=== PATIENT | male | born 2000 | race African-American/Black ===

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

== ENCOUNTER 2020-03-03 04:51 | Emergency (ER) | payer SELFPAY ==
[~2020-03-03] VITALS: Ht 170.2 cm; Wt 63.6 kg
[~2020-03-03 04:51] MED LIST changes: +ALBU2.5V8 INH; +OMEP20CA16 PO; -PROAIR HFA8.5 GM INH
--- NOTE | 2020-03-03 05:18 | PHYS DOC ---
Past Medical History Past Medical History: Anxiety, Asthma, Depression (ZBIGNIEW ZAMAN Jr. DO) Past Surgical History: No Surgical History (ZBIGNIEW ZAMAN Jr., DO) Smoking Status: Current Some Day Smoker Alcohol Use: None Drug Use: Marijuana (ZBIGNIEW ZAMAN Jr. DO) General Adult EDM: Chief Complaint: ANXIETY/PANIC ATTACK HPI: HPI: Patient is a 20 year old male who presents with complaint of palpitations, stating that his heart is been racing since last night. He states that his girlfriend showed him a bump on his back and he became very anxious and heart started racing. He states it went as high as the 120s. He denies any chest pain. He does indicate that he has severe anxiety. [] (ZBIGNIEW ZAMAN Jr. DO) Review of Systems: Review of Systems: Constitutional: Denies fever or chills. [] Respiratory: Denies cough or shortness of breath. [] Cardiovascular: Denies chest pain or edema. Complains of palpitations [] GI: Denies abdominal pain, nausea, vomiting or diarrhea. [] Integument: Denies rash. [] Neurologic: Denies headache, focal weakness or sensory changes. [] Psychiatric: Complains of anxiety. [] A full 10 point review of systems has been reviewed and is otherwise negative. (ZBIGNIEW ZAMAN Jr. DO) Heart Score: Risk Factors: Risk Factors: DM, Current or recent (<one month) smoker, HTN, HLP, family history of CAD, obesity. Risk Scores: Score 0 - 3: 2.5% MACE over next 6 weeks - Discharge Home Score 4 - 6: 20.3% MACE over next 6 weeks - Admit for Clinical Observation Score 7 - 10: 72.7% MACE over next 6 weeks - Early Invasive Strategies (ZBIGNIEW ZAMAN Jr. DO) Allergies: Allergies: Allergies Coded Allergies Type Severity Reaction Last Updated Verified No Known Drug Allergies 02/22/17 No (ZBIGNIEW ZAMAN Jr. DO) Physical Exam: PE: Constitutional: Well developed, well nourished, no acute distress, non-toxic appearance. [] HENT: Normocephalic, atraumatic, bilateral external ears normal, oropharynx moist, no oral exudates, nose normal. [] Eyes: PERRLA, EOMI, conjunctiva normal, no discharge. [] Neck: Normal range of motion, no tenderness, supple, no stridor. [] Cardiovascular: Regular rate and rhythm [] Lungs & Thorax: Bilateral breath sounds clear to auscultation [] Abdomen: Bowel sounds normal, soft, no tenderness. [] Skin: Warm, dry, no erythema, no rash. [] Extremities: No tenderness, no cyanosis, no clubbing, ROM intact. [] Neurologic: Alert and oriented X 3, no focal deficits noted. [] (ZBIGNIEW ZAMAN Jr., DO) EKG: EKG: [] (ZBIGNIEW ZAMAN Jr., DO) Radiology/Procedures: Radiology/Procedures: [] (ZBIGNIEW ZAMAN Jr., DO) Course & Med Decision Making: Course & Med Decision Making Pertinent Labs and Imaging studies reviewed. (See chart for details) [] (ZBIGNIEW ZAMAN Jr., DO) Dragon Disclaimer: Dragon Disclaimer: This electronic medical record was generated, in whole or in part, using a voice recognition dictation system. (ZBIGNIEW ZAMAN Jr., DO) Departure Departure Impression: Primary Impression: Anxiety about health Additional Impression: Palpitations Disposition: 01 HOME, SELF-CARE Condition: STABLE Referrals: NO PCP (PCP) Patient Instructions: Anxiety and Panic Attacks, Palpitations Additional Instructions: ruturn to the ER with any new or concerning symptoms ZBIGNIEW ZAMAN Jr., DO Mar 03, 2020 05:18 TEJA ESPARZA DO Mar 03, 2020 07:03
[2020-03-03] MEDS ORDERED: chlordiazePOXIDE HCL 25 MG CAPSULE PO ONE (05:45)
--- NOTE | 2020-03-03 06:00 | EKG ---
[facility] [address] [place] [address] Test Date: 2020-03-03 Test Time: 05:48:22 Pat Name: IRENA CONN Department: Room: Gender: M [employer]: : 2000 Requested By: ZBIGNIEW ZAMAN Order Number: [id number] Reading MD: Zackary Antoine MD Measurements Intervals [place] Rate: 58 P: 45 NV: 148 QRS: 64 QRSD: 88 T: 46 QT: 380 QTc: 376 Interpretive Statements SINUS RHYTHM J-POINT ELEVATION DIFFUSE, CONSIDER PERICARDITIS Electronically Signed On 03-05-2020 13:26:50 CDT by Zackary Antoine MD
[2020-03-03 06:42] LABS: CREATININE 1.3 mg/dL (0.7-1.3); GFR 83.5; POTASSIUM 3.7 mmol/L (3.5-5.1)
[2020-03-03 06:50] LABS: ALBUMIN/GLOBULIN RATIO 1.1 (1.0-1.7); MAGNESIUM 1.9 mg/dL (1.8-2.4); TOTAL BILIRUBIN 0.6 mg/dL (0.2-1.0); TOTAL PROTEIN 7.5 g/dL (6.4-8.2)
[2020-03-03 07:00] VITALS: BP 111/57
[2020-03-03 07:28] LABS: BASO % 1 % (0-3); EOS # 0.1 x10^3/uL (0.0-0.7); EOS % 3 % (0-3); HEMATOCRIT 43.7 % (39.0-53.0); LYMPH % 47 % (24-48); MEAN CORPUSCULAR HEMOGLOBIN 30 pg (25-35); MEAN CORPUSCULAR HGB CONC 34 g/dL (31-37); MEAN CORPUSCULAR VOLUME 87 fL (79-100); MONO # 0.4 x10^3/uL (0.0-1.1); MONO % 10 % (0-9); NEUT # 1.7 x10^3/uL (1.8-7.7); NEUT % 40 % (31-73); PLATELET COUNT 246 x10^3/uL (140-400); RED BLOOD COUNT 5.06 x10^6/uL (4.30-5.70); RED CELL DISTRIBUTION WIDTH 13.6 % (11.5-14.5); WHITE BLOOD COUNT 4.3 x10^3/uL (4.0-11.0)
== END 2020-03-03 07:16 | disposition home or self-care (01) ==
LOC: ER 04:51
DX: F41.9 Anxiety disorder, unspecified (principal); R00.2 Palpitations; J45.909 Unspecified asthma, uncomplicated; F17.200 Nicotine dependence, unspecified, uncomplicated
CPT/HCPCS: 36415; 80053; 83735; 84443; 84484; 85025; 93005; 99284